=== PATIENT | female | born 1985 | race Two or more races ===

== ENCOUNTER 2017-03-17 10:33 | Emergency (ER) | payer SELFPAY ==
--- NOTE | 2017-03-17 12:07 | ER Document Report ---
ED Medical Screen (RME) - General Chief Complaint: Vaginal Bleeding Stated Complaint: ABDOMINAL PAIN, VAGINAL BLEEDING Time seen by provider: 12:05 Mode of Arrival: Ambulatory Information source: Patient TRAVEL OUTSIDE OF THE [place] IN LAST 30 DAYS: No - HPI Patient complains to provider of: heavy vaginal bleeding Onset: Other - 3-4 days Onset/Duration: Gradual Quality of pain: Achy, Cramping Severity: Moderate Pain Level: 3 Exacerbated by: Denies Relieved by: Denies Similar symptoms previously: No Recently seen / treated by doctor: No Notes: 03/17/17 12:06 31 y/o female presents to the ED for c/o heavy vaginal bleeding x 3-4 days with large clots passing, last menstrual period was 2 weeks ago, no h/o irregular periods, ? , nausea/vomiting Past Medical History Renal/ Medical History: Denies: Hx Peritoneal Dialysis Physical Exam - Vital signs Vitals: Temp Pulse Resp BP Pulse Ox 98.7 F 86 14 124/73 98 03/17/17 10:42 03/17/17 10:42 03/17/17 10:42 03/17/17 10:42 03/17/17 10:42 Course - Vital Signs Vital signs: Temp Pulse Resp BP Pulse Ox 98.7 F 86 14 124/73 98 03/17/17 10:42 03/17/17 10:42 03/17/17 10:42 03/17/17 10:42 03/17/17 10:42
[2017-03-17 12:51] LABS: ABSOLUTE BASOPHILS # (AUTO) 0.1 10^3/uL (0.0-0.2); ABSOLUTE EOSINOPHILS # (AUTO) 0.2 10^3/uL (0.0-0.6); ABSOLUTE LYMPHOCYTES (AUTO) 2.7 10^3/uL (0.5-4.7); ABSOLUTE MONOCYTES (AUTO) 0.5 10^3/uL (0.1-1.4); ABSOLUTE NEUT (AUTO) 7.1 10^3/uL (1.7-8.2); BASOPHILS % (AUTO) 0.7 % (0-2); EOSINOPHILS % (AUTO) 2.3 % (0-6); HEMATOCRIT 32.3 % (36.0-47.0); HEMOGLOBIN 9.9 g/dL (12.0-15.5); HGB HCT DIFFERENCE -2.6; LYMPHOCYTES % (AUTO) 25.2 % (13-45); MEAN CORPUSCULAR HEMOGLOBIN 21.3 pg (27.0-33.4); MEAN CORPUSCULAR HGB CONC 30.7 g/dL (32.0-36.0); MEAN CORPUSCULAR VOLUME 69 fl (80-97); RED BLOOD COUNT 4.66 10^6/uL (3.72-5.28); RED CELL DISTRIBUTION WIDTH 18.6 % (11.5-14.0); SEGMENTED NEUTROPHILS % (AUTO) 66.8 % (42-78); WHITE BLOOD COUNT 10.6 10^3/uL (4.0-10.5)
[2017-03-17 13:02] LABS: ALANINE AMINOTRANSFERASE 31 U/L (9-52); ALBUMIN 3.9 g/dL (3.5-5.0); ALKALINE PHOSPHATASE 84 U/L (38-126); ANION GAP 10 (5-19); APPEARANCE,URINE CLOUDY; ASPARTATE AMINO TRANSFERASE 31 U/L (14-36); BILIRUBIN,DIRECT 0.3 mg/dL (0.0-0.4); BILIRUBIN,TOTAL 0.5 mg/dL (0.2-1.3); BILIRUBIN,URINE NEGATIVE (NEGATIVE); BLOOD UREA NITROGEN 9 mg/dL (7-20); CALCIUM 8.7 mg/dL (8.4-10.2); CARBON DIOXIDE 25 mmol/L (22-30); CHLORIDE 104 mmol/L (98-107); CREATININE RESULT 0.51 mg/dL (0.52-1.25); GLUCOSE 85 mg/dL (75-110); GLUCOSE, URINE NEGATIVE (NEGATIVE); KETONES,URINE NEGATIVE (NEGATIVE); LEUKOCYTE ESTERASE,URINE MODERATE (NEGATIVE); NITRITE,URINE NEGATIVE (NEGATIVE); POTASSIUM 4.6 mmol/L (3.6-5.0); PROTEIN,URINE 100 mg/dL (NEGATIVE); SODIUM 139.4 mmol/L (137-145); TOTAL PROTEIN 6.9 g/dL (6.3-8.2); URINE SPECIFIC GRAVITY 1.016; UROBILINOGEN,URINE NEGATIVE mg/dL (<2.0)
--- NOTE | 2017-03-17 13:29 | ER Document Report ---
ED General - General Chief Complaint: Vaginal Bleeding Stated Complaint: ABDOMINAL PAIN, VAGINAL BLEEDING Mode of Arrival: Ambulatory TRAVEL OUTSIDE OF THE [place] IN LAST 30 DAYS: No - HPI Patient complains to provider of: vaginal bleeding Notes: Patient is coming in today for evaluation of vaginal bleeding. Patient states possibly 2 weeks ago she had a normal cycle however the last 3 days she's had a heavier cycle with large blood clots. Patient is unaware of her status. Patient states that in the last week she has had increase stress. Patient denies any fevers chills nausea vomiting dysuria diarrhea. Patient denies any generalized weakness or fatigue. - Related Data Allergies/Adverse Reactions: No Known Allergies Allergy (Verified 03/17/17 12:05) Past Medical History - General Information source: Patient - Social History Smoking Status: Current Every Day Smoker Chew tobacco use (# tins/day): No Frequency of alcohol use: Social Drug Abuse: None Family History: Reviewed & Not Pertinent Patient has suicidal ideation: No Patient has homicidal ideation: No Renal/ Medical History: Denies: Hx Peritoneal Dialysis Past Surgical History: Reports: Hx Section - Immunizations Hx Diphtheria, Pertussis, Tetanus Vaccination: Yes Review of Systems - Review of Systems Constitutional: No symptoms reported EENT: No symptoms reported Cardiovascular: No symptoms reported Respiratory: No symptoms reported Gastrointestinal: No symptoms reported Genitourinary: No symptoms reported Female Genitourinary: Vaginal bleeding Musculoskeletal: No symptoms reported Skin: No symptoms reported Hematologic/Lymphatic: No symptoms reported Neurological/Psychological: No symptoms reported -: Yes All other systems reviewed and negative Physical Exam - Vital signs Vitals: Temp Pulse Resp BP Pulse Ox 98.7 F 86 14 124/73 98 03/17/17 10:42 03/17/17 10:42 03/17/17 10:42 03/17/17 10:42 03/17/17 10:42 Interpretation: Normal - General General appearance: Appears well, Alert - HEENT Head: Normocephalic, Atraumatic Eyes: Normal Pupils: PERRL - Respiratory Respiratory status: No respiratory distress Chest status: Nontender Breath sounds: Normal Chest palpation: Normal - Cardiovascular Rhythm: Regular Heart sounds: Normal auscultation Murmur: No - Abdominal Inspection: Normal Distension: No distension Bowel sounds: Normal Tenderness: Nontender Organomegaly: No organomegaly - Back Back: Normal, Nontender - Extremities General upper extremity: Normal inspection, Nontender, Normal color, Normal ROM , Normal temperature General lower extremity: Normal inspection, Nontender, Normal color, Normal ROM , Normal temperature, Normal weight bearing. No: Cammy's sign - Neurological Neuro grossly intact: Yes Cognition: Normal Orientation: AAOx4 [place] Coma Scale Eye Opening: Spontaneous [place] Coma Scale Verbal: Oriented [place] Coma Scale Motor: Obeys Commands [place] Coma Scale Total: 15 Speech: Normal Motor strength normal: LUE, RUE, LLE, RLE Sensory: Normal - Psychological Associated symptoms: Normal affect, Normal mood - Skin Skin Temperature: Warm Skin Moisture: Dry Skin Color: Normal Course - Re-evaluation Re-evalutation: 03/17/17 15:29 Patient's laboratory showed anemia more likely iron deficient patient was encouraged to take vitamins with iron a persistent was performed. Patient is not . Otherwise patient vital signs does not show any critical he abnormalities. More likely patient is experiencing dysfunction uterine bleeding possibly due to increased stress. Abdomen soft nontender patient will be referred to [facility]. Will give the patient Bentyl for her cramping and Motrin - Vital Signs Vital signs: Temp Pulse Resp BP Pulse Ox 98.0 F 76 18 127/66 H 100 03/17/17 13:40 03/17/17 13:40 03/17/17 13:40 03/17/17 13:40 03/17/17 13:40 - Laboratory Result Diagrams: 03/17/17 12:10 03/17/17 12:10 Laboratory results interpreted by me: 03/17/17 03/17/17 03/17/17 12:10 12:10 12:10 WBC 10.6 H Hgb 9.9 L Hct 32.3 L MCV 69 L MCH 21.3 L MCHC 30.7 L RDW 18.6 H Creatinine 0.51 L Urine Protein 100 H Urine Blood LARGE H Ur Leukocyte Esterase MODERATE H Discharge - Discharge Clinical Impression: Dysfunctional uterine bleeding Anemia Qualifiers: Anemia type: unspecified type Qualified Code(s): D64.9 - Anemia, unspecified Condition: Good Disposition: HOME, SELF-CARE Instructions: Anemia ([facility]), Dysfunctional Uterine Bleeding ([facility]) Additional Instructions: Your laboratory today shows no signs of . You do have a slight anemia. I would highly recommend taking an [id number] vitamin with iron. You may use the vitamins prescribed You may take Tylenol Motrin for your abdominal pain. You may also try the Bentyl prescribed for your abdominal cramping and uterine cramping. Please follow-up with your doctor or the [facility] listed. Prescriptions: Dicyclomine HCl [Bentyl 20 mg Tablet] 20 mg PO QID PRN #30 tablet PRN Reason: Ibuprofen [Motrin 600 Mg Tablet] 600 mg PO TID #30 tablet Pnv with Ca,No.72/Iron/FA [ Plus Tablet] 1 each PO DAILY #30 tablet Forms: Return to Work Referrals: NATA CALERO MD [ACTIVE STAFF] - Follow up as needed
[2017-03-17 13:41] VITALS: BP 127/66
== END 2017-03-17 13:41 | disposition home or self-care (01) ==
LOC: ER 10:33
DX: N93.8 Other specified abnormal uterine and vaginal bleeding (principal); D64.9 Anemia, unspecified; F17.200 Nicotine dependence, unspecified, uncomplicated
CPT/HCPCS: 36415; 80053; 81001; 84703; 85025; 87086; 87088; 99284

== ENCOUNTER 2020-09-05 19:31 | Emergency (ER) | payer OTHER ==
[2020-09-05] MEDS ORDERED: RINGERS SOLUTION,LACTATED 1,000 ML IV ONE (20:58)
[2020-09-05] MEDS ORDERED: METOCLOPRAMIDE HCL INJ/PF 10 MG/2 ML SDV IV ONE (20:58)
--- NOTE | 2020-09-05 21:00 | ER Document Report ---
ED GI/ - General Chief Complaint: Nausea/Vomiting Stated Complaint: VOMITING Time Seen by Provider: 09/05/20 20:31 Primary Care Provider: STAECY SHANNON MD [ACTIVE STAFF] - Follow up as needed Mode of Arrival: Ambulatory Information source: Patient Notes: 35-year-old female with no previous medical problems presents to the emergency room complaining of nausea vomiting x2 days. States she had one episode a week ago that resolved after 2 days. She denies any fevers. No diarrhea. States she is been unable to tolerate anything p.o. today. No urinary symptoms. No recent travel. No fevers. No COVID-19 exposure. No bad food. No antibiotics in the past week. Last period end of June, concern for . TRAVEL OUTSIDE OF THE [place] IN LAST 30 DAYS: No - Related Data Allergies/Adverse Reactions: No Known Allergies Allergy (Verified 09/05/20 20:36) Past Medical History - General Information source: Patient - Social History Smoking Status: Current Every Day Smoker Frequency of alcohol use: Occasional Drug Abuse: None Family History: Reviewed & Not Pertinent Patient has homicidal ideation: No Renal/ Medical History: Denies: Hx Peritoneal Dialysis Past Surgical History: Reports: Hx Section - Immunizations Hx Diphtheria, Pertussis, Tetanus Vaccination: Yes Review of Systems - Review of Systems Constitutional: No symptoms reported EENT: No symptoms reported Cardiovascular: No symptoms reported Respiratory: No symptoms reported Gastrointestinal: Nausea, Vomiting. denies: Abdominal pain, Diarrhea Genitourinary: No symptoms reported Skin: No symptoms reported Neurological/Psychological: No symptoms reported -: Yes All other systems reviewed and negative Physical Exam - Vital signs Vitals: Temp Pulse Resp BP Pulse Ox 99.4 F 98 16 142/82 H 97 09/05/20 20:34 09/05/20 20:34 09/05/20 20:34 09/05/20 20:34 09/05/20 20:34 - Notes Notes: GENERAL: Mild acute distress, non-toxic appearance. HEAD: Normal with no signs of head trauma. EYES: PERRLA, EOMI, conjunctiva normal, no discharge. EARS: Hearing grossly intact. NOSE: Normal. THROAT: Oropharynx is normal. NECK: Normal range of motion, no tenderness, supple, no lymphadenopathy, No adenopathy, no JVD. CHEST: Clear breath sounds bilaterally. No wheezes, rales, or rhonchi. CARDIAC: Regular rate and rhythm. S1 and S2, without murmurs, gallops, or rubs. VASCULAR: No Edema. Peripheral pulses normal and equal in all extremities. ABDOMEN: Normal and soft with no tenderness, no masses or pulsatile masses. No organomegaly. Positive bowel sounds x4. No CVA tenderness noted bilaterally. GASTROINTESTINAL: Bowel sounds normal LYMPATHTIC: No lymphadenopathy noted. MUSCULOSKELETAL: Good range of motion of all major joints. Extremities without clubbing, cyanosis or edema. NEUROLOGICAL: Alert and oriented x 3. No focal sensory or strength deficits. Speech normal. Follows commands appropriately. PSYCHIATRIC: Normal Affect, judgement and mood. SKIN: Normal appearance with no rashes or lesions. - Genitourinary External exam: Normal Speculum exam: Cervix closed. No: Vaginal discharge Vaginal bleeding: Mild Bimanuel exam: Normal. No: Cervical motion tender, Bladder/Urethral tender, Adnexal mass, Adnexal tenderness, Uterus enlarged Course - Re-evaluation Re-evalutation: 09/05/20 21:06 [facility] Patient presents to the emergency room with nausea vomiting that started a week ago and then resolved after a day and restarted again 2 days ago. Last period was the end of June. Sexually active not using control. Patient states she is unable to tolerate anything p.o. Came to the emergency room for test. Will check labs, test, IV fluids antiemetics and reevaluate. 09/05/20 21:06 09/05/20 23:28 Patient is resting comfortably able to tolerate p.o. fluids. Reviewed lab results with patient. Patient is now asking to be tested for STDs. States she is having some vaginal discharge for the past few days, and is concerned that her partner may have been unfaithful. No known exposure to STDs. Has not been told that her partner has any STDs but she would like to be checked. 09/06/20 00:29 Reviewed wet prep results with patient. Aware of positive for bacterial va ginosis and trichomonas. She is aware that her gonorrhea and Chlamydia tests are still pending but she has been treated prophylactically for both gonorrhea and chlamydia. She was counseled on the importance of notifying her partner of her positive trichomonas test. Given first dose of Flagyl in the emergency room. She was counseled to take her Flagyl as prescribed. No drinking alcohol while taking the Flagyl and for 24 hours after completing. She was counseled on no sexual activity for the next 2 weeks. Recommend outpatient follow-up with [facility] if not improving in 1 week. Patient was provided with on-call physician. Patient was given strict return to the emergency room guidelines. Return for any new or worsening symptoms. All questions were answered. Patient verbalized understanding and agrees with plan of care. 09/06/20 00:34 - Vital Signs Vital signs: Temp Pulse Resp BP Pulse Ox 99.0 F 85 18 119/65 100 09/05/20 23:50 09/05/20 23:50 09/05/20 23:50 09/05/20 23:50 09/05/20 23:50 - Laboratory Result Diagrams: 09/05/20 22:20 09/05/20 22:20 Laboratory results interpreted by me: 09/05/20 09/05/20 09/05/20 20:40 22:20 22:20 WBC 11.9 H Hgb 10.2 L Hct 32.0 L MCV 70 L MCH 22.2 L MCHC 31.7 L RDW 21.8 H AST 53 H Urine Blood SMALL H Ur Leukocyte Esterase SMALL H Discharge - Discharge Clinical Impression: Trichomonas infection, Bacterial vaginosis Nausea and vomiting Qualifiers: Vomiting type: unspecified Vomiting Intractability: non-intractable Qualified Code(s): R11.2 - Nausea with vomiting, unspecified Condition: Stable Disposition: HOME, SELF-CARE Instructions: Antinausea Medication ([facility]), Trichomonas Infection ([facility]), Vagino sis, Bacterial ([facility]), Vomiting ([facility]) Additional Instructions: Take your medications as prescribed. No drinking alcohol while taking the Flagyl for 24 hours after completing treatment. No sexual activity for 2 weeks. You need to notify your partner of your positive test results. You will also be notified if your gonorrhea and/or chlamydia test are positive that you have been treated prophylactically for both. Outpatient follow-up with [facility] if not improving in 1 week. Return to emergency room for any new or worsening symptoms. Prescriptions: Metronidazole [Flagyl 500 mg Tablet] 500 mg PO BID #14 tablet Ondansetron [Zofran Odt 4 mg Tablet] 1 tab PO Q4H PRN #15 tab.rapdis PRN Reason: For Nausea/Vomiting Forms: Return to Work Referrals: STACEY SHANNON MD [ACTIVE STAFF] - Follow up as needed
[2020-09-05 21:15] LABS: APPEARANCE,URINE SLIGHTLY-CLOUDY; BILIRUBIN,URINE NEGATIVE (NEGATIVE); COLOR,URINE YELLOW; GLUCOSE, URINE NEGATIVE (NEGATIVE); KETONES,URINE NEGATIVE (NEGATIVE); LEUKOCYTE ESTERASE,URINE SMALL (NEGATIVE); NITRITE,URINE NEGATIVE (NEGATIVE); PROTEIN,URINE NEGATIVE (NEGATIVE); URINE SPECIFIC GRAVITY 1.016; UROBILINOGEN,URINE NEGATIVE mg/dL (<2.0)
[2020-09-05 22:41] LABS: ABSOLUTE BASOPHILS # (AUTO) 0.1 10^3/uL (0.0-0.2); ABSOLUTE EOSINOPHILS # (AUTO) 0.2 10^3/uL (0.0-0.6); ABSOLUTE LYMPHOCYTES (AUTO) 3.5 10^3/uL (0.5-4.7); ABSOLUTE MONOCYTES (AUTO) 0.5 10^3/uL (0.1-1.4); ABSOLUTE NEUT (AUTO) 7.6 10^3/uL (1.7-8.2); BASOPHILS % (AUTO) 0.7 % (0-2); HEMOGLOBIN 10.2 g/dL (12.0-15.5); LYMPHOCYTES % (AUTO) 29.3 % (13-45); MEAN CORPUSCULAR HEMOGLOBIN 22.2 pg (27.0-33.4); MEAN CORPUSCULAR HGB CONC 31.7 g/dL (32.0-36.0); MEAN CORPUSCULAR VOLUME 70 fl (80-97); MONOCYTES % (AUTO) 4.6 % (3-13); PLATELET COUNT 400 10^3/uL (150-450); RED BLOOD COUNT 4.57 10^6/uL (3.72-5.28); RED CELL DISTRIBUTION WIDTH 21.8 % (11.5-14.0); SEGMENTED NEUTROPHILS % (AUTO) 63.4 % (42-78); TOTAL CELLS COUNTED % (AUTO) 100 %; WHITE BLOOD COUNT 11.9 10^3/uL (4.0-10.5)
[2020-09-05 22:53] LABS: ALBUMIN 3.9 g/dL (3.5-5.0); ALKALINE PHOSPHATASE 112 U/L (38-126); ANION GAP 8 (5-19); ASPARTATE AMINO TRANSFERASE 53 U/L (14-36); BILIRUBIN,DIRECT 0.3 mg/dL (0.0-0.4); BILIRUBIN,TOTAL 0.3 mg/dL (0.2-1.3); BLOOD UREA NITROGEN 10 mg/dL (7-20); CALCIUM 9.1 mg/dL (8.4-10.2); CARBON DIOXIDE 24 mmol/L (22-30); CHLORIDE 106 mmol/L (98-107); GLUCOSE 90 mg/dL (75-110); POTASSIUM 4.1 mmol/L (3.6-5.0); TOTAL PROTEIN 7.1 g/dL (6.3-8.2)
[2020-09-05] MEDS ORDERED: AZITHROMYCIN 250 MG TABLET PO ONE (23:35)
[2020-09-05] MEDS ORDERED: CEFTRIAXONE INJ 250 MG VIAL IV ONE (23:35)
[2020-09-05 23:53] LABS: T.VAGINALIS (WET MOUNT) TRICHOMONAS SEEN; WBCS (WET MOUNT) 3+ WBCS SEEN; YEAST (WET MOUNT) NO YEAST SEEN
[2020-09-05 23:55] LABS: BACTERIA (WET MOUNT) 4+ BACTERIA SEEN; EPITHELIALS (WET MOUNT) 3+ EPITHELIALS SEEN; RBCS (WET MOUNT) 1+ RBCS SEEN
[2020-09-06] MEDS ORDERED: METRONIDAZOLE 500 MG TABLET PO ONE (00:07)
[2020-09-06 01:05] VITALS: BP 122/65
[2020-09-06 01:30] LABS: CHLAM PCR NOT DETECTED (NOT DETECT)
== END 2020-09-06 01:15 | disposition home or self-care (01) ==
LOC: ER 19:31
DX: N76.0 Acute vaginitis (principal); B96.89 Other specified bacterial agents as the cause of diseases classified elsewhere; A59.01 Trichomonal vulvovaginitis; R11.2 Nausea with vomiting, unspecified; F17.200 Nicotine dependence, unspecified, uncomplicated
CPT/HCPCS: 99284; 96361; 96375; 96365; 36415; 87086; 87210; 83690; 85025; 81025; 87088; 80053; 81001; 87186; 87491; 87591; J2765; J7120; J0696